=== PATIENT | female | born 1995 | race Caucasian/White ===

== ENCOUNTER 2021-10-23 09:44 | Outpatient (CLI) | payer OTHER | END 2021-10-23 09:47 | disposition home or self-care (01) | LOC: LAB 09:44 | DX: N39.0 Urinary tract infection, site not specified (principal); D64.9 Anemia, unspecified; Z13.1 Encounter for screening for diabetes mellitus; Z13.220 Encounter for screening for lipoid disorders; Z13.29 Encounter for screening for other suspected endocrine disorder; N94.6 Dysmenorrhea, unspecified; D51.3 Other dietary vitamin B12 deficiency anemia; E67.3 Hypervitaminosis D ==

== ENCOUNTER 2021-10-23 13:53 | Outpatient (CLI) | payer OTHER | END 2021-10-23 14:06 | disposition home or self-care (01) | LOC: SONOGRAMA 13:53 | PROVIDERS: ATTEND Obstetrics & Gynecology Obstetrics | DX: E04.9 Nontoxic goiter, unspecified (principal); N60.11 Diffuse cystic mastopathy of right breast; N60.12 Diffuse cystic mastopathy of left breast; N94.4 Primary dysmenorrhea ==

== ENCOUNTER → 2021-11-17 12:39 | Outpatient (CLI) | payer OTHER | END | disposition home or self-care (01) | LOC: LAB 12:39 | PROVIDERS: ATTEND Radiology Body Imaging | DX: Z20.828 Contact with and (suspected) exposure to other viral communicable diseases (principal); Z20.822 Contact with and (suspected) exposure to COVID-19; Z11.52 Encounter for screening for COVID-19; U07.1 COVID-19 ==